=== PATIENT | female | born 1985 | race Caucasian/White ===

== ENCOUNTER 2018-10-03 07:35 | Inpatient (IN) | payer OTHER ==
[~2018-10-03] VITALS: Ht 172.7 cm; Wt 87.7 kg
[~2018-10-03 07:35] MED LIST: IBUP-1222 PO; OXYC-302 PO
[2018-10-03] MEDS ORDERED: LACTATED RINGERS 1,000 ML IV SCH (10:23)
[2018-10-03] MEDS ORDERED: SODIUM CITRATE/CITRIC ACID 15 ML UDC PO ONE (10:30)
[2018-10-03] MEDS ORDERED: METOCLOPRAMIDE 5 MG/ML, 2ML IV ONE (10:30)
[2018-10-03] MEDS ORDERED: LACTATED RINGERS 1,000 ML IVBOLUS ONE (10:30)
[2018-10-03 10:44] VITALS: BP 122/78
[2018-10-03] MEDS ORDERED: SODIUM CITRATE/CITRIC ACID 15 ML UDC ONE (10:57)
[2018-10-03] MEDS ORDERED: METOCLOPRAMIDE 5 MG/ML, 2ML ONE (10:57)
[2018-10-03] MEDS ORDERED: PLEASE ENTER HEIGHT AND WEIGHT MC SCH (11:00)
[2018-10-03 11:07] LABS: BASOPHILS # (AUTO) 0.02 x10^3/uL (0-0.1); BASOPHILS % (AUTO) 0 % (0-1); EOSINOPHILS # (AUTO) 0.05 x10^3/uL (0-0.4); EOSINOPHILS % (AUTO) 0 % (1-7); LYMPHOCYTES # (AUTO) 2.88 x10^3/uL (1-3.4); LYMPHOCYTES % (AUTO) 24 % (22-44); MD NO; MEAN CORPUSCULAR HEMOGLOBIN 29.2 pg (27.0-34.8); MEAN CORPUSCULAR HGB CONC 33.1 g/dL (32.4-35.8); MEAN CORPUSCULAR VOLUME 88.3 fL (80-100); MEAN PLATELET VOLUME 6.8 fL (7.4-10.4); MONOCYTES # (AUTO) 0.89 x10^3/uL (0.2-0.8); MONOCYTES % (AUTO) 7 % (2-9); NEUTROPHILS % (AUTO) 68 % (42-75); PLATELET COUNT 275 x10^3/uL (130-400); RED BLOOD COUNT 4.33 x10^6/uL (3.82-5.3); RED CELL DISTRIBUTION WIDTH 14.4 % (9.6-15.2)
[2018-10-03] MEDS ORDERED: NEWBORN KIT ONE (11:32)
[2018-10-03] MEDS ORDERED: ONDANSETRON 2MG/ML, 2ML ONE (11:41)
[2018-10-03] MEDS ORDERED: EPHEDRINE 50 MG/ML, 1ML ONE (11:41)
[2018-10-03] MEDS ORDERED: DEXAMETHASONE 4 MG/ML, 1ML ONE (11:41)
[2018-10-03] MEDS ORDERED: KETOROLAC 30 MG/1 ML ONE (11:41)
[2018-10-03] MEDS ORDERED: CEFAZOLIN 1,000 MG ONE (11:41)
[2018-10-03] MEDS ORDERED: OXYTOCIN 10 UNITS/ML, 1ML ONE (11:41)
[2018-10-03] MEDS ORDERED: PHENYLEPHRINE 10 MG/ML ONE (11:41)
[2018-10-03] MEDS ORDERED: FENTANYL PF 100 MCG/2ML ONE (11:42)
[2018-10-03] MEDS ORDERED: OXYcodone 5 MG/5 ML ORAL.SOL UDC PO PRN (12:00)
[2018-10-03] MEDS ORDERED: FENTANYL PF 100 MCG/2ML IV PRN (12:00)
[2018-10-03] MEDS ORDERED: ONDANSETRON 2MG/ML, 2ML IVPush PRN (12:00)
[2018-10-03] MEDS ORDERED: MIDAZOLAM 1 MG/ML, 2ML IV PRN (12:00)
[2018-10-03] MEDS ORDERED: HYDROcodone/APAP 7.5-325MG/15ML UDC PO PRN (12:00)
[2018-10-03] MEDS ORDERED: hydrALAzine 20 MG/ML, 1ML IV PRN (12:00)
[2018-10-03] MEDS ORDERED: EPHEDRINE 50 MG/ML, 1ML IVPush PRN (12:00)
[2018-10-03] MEDS ORDERED: PROMETHAZINE 25 MG/ML, 1ML IV PRN (12:00)
[2018-10-03] MEDS ORDERED: LABETALOL 5MG/ML, 20ML IV PRN (12:00)
[2018-10-03] MEDS ORDERED: HYDROmorphone 2 MG/ML, 1ML IVPush PRN (12:00)
[2018-10-03] MEDS ORDERED: MEPERIDINE/PF 25MG/0.5ML IVPush PRN (12:00)
[2018-10-03] MEDS ORDERED: ALBUTEROL/IPRATROPIUM 2.5MG/0.5MG, 3 ML NPPB PRN (12:00)
[2018-10-03] MEDS ORDERED: HYDROmorphone 2 MG/ML, 1ML ONE (12:41)
[2018-10-03] MEDS: KETOROLAC 30 MG/1 ML IV SCH ×2 (13:00→20:07)
[2018-10-03] MEDS: LACTATED RINGERS 1,000 ML IV SCH ×4 (13:17→23:17)
[2018-10-03] MEDS ORDERED: OXYTOCIN 30U/ 0.9% NaCL 500ML 500 ML ONE (13:19)
[2018-10-03] MEDS ORDERED: OXYcodone IR 5MG TABLET PO PRN (13:30)
[2018-10-03] MEDS ORDERED: MISOPROSTOL 200 MCG TABLET PR PRN (13:30)
[2018-10-03] MEDS ORDERED: ONDANSETRON 2MG/ML, 2ML IV PRN (13:30)
[2018-10-03] MEDS ORDERED: IBUPROFEN 600 MG TABLET PO PRN (13:30)
[2018-10-03] MEDS ORDERED: MORPHINE SULFATE 4 MG/ML, 1ML IVPush PRN (13:30)
[2018-10-03] MEDS ORDERED: morphine SULFATE 10 MG/ML, 1ML IM PRN (13:30)
[2018-10-03] MEDS: OXYTOCIN 30U/ 0.9% NaCL 500ML 500 ML IV SCH ×2 (13:44→23:17)
[2018-10-03] MEDS ORDERED: morphine SULFATE 10 MG/ML, 1ML ONE (15:00)
[2018-10-03 15:30] VITALS: BP 114/72
[2018-10-03] MEDS: OXYcodone IR 5MG TABLET PO PRN ×2 (16:07→20:06)
[2018-10-03 19:30] VITALS: BP 113/69
[2018-10-03] MEDS: SIMETHICONE 80 MG CHEW TAB PO PRN (20:07)
[2018-10-03] MEDS: DOCUSATE 100 MG CAPSULE PO PRN (20:07)
[2018-10-03 21:57] LABS: BASOPHILS # (AUTO) 0.04 x10^3/uL (0-0.1); BASOPHILS % (AUTO) 0 % (0-1); EOSINOPHILS % (AUTO) 0 % (1-7); LYMPHOCYTES # (AUTO) 1.99 x10^3/uL (1-3.4); LYMPHOCYTES % (AUTO) 12 % (22-44); MD NO; MEAN CORPUSCULAR HEMOGLOBIN 29.3 pg (27.0-34.8); MEAN CORPUSCULAR HGB CONC 33.1 g/dL (32.4-35.8); MEAN CORPUSCULAR VOLUME 88.5 fL (80-100); MEAN PLATELET VOLUME 6.6 fL (7.4-10.4); MONOCYTES # (AUTO) 0.67 x10^3/uL (0.2-0.8); MONOCYTES % (AUTO) 4 % (2-9); NEUTROPHILS # (AUTO) 13.68 x10^3/uL (1.8-6.8); NEUTROPHILS % (AUTO) 84 % (42-75); PLATELET COUNT 228 x10^3/uL (130-400); RED BLOOD COUNT 3.48 x10^6/uL (3.82-5.3); RED CELL DISTRIBUTION WIDTH 14.4 % (9.6-15.2)
[2018-10-04] MEDS: OXYcodone IR 5MG TABLET PO PRN ×6 (00:27→21:39)
[2018-10-04 00:30] VITALS: BP 106/70
[2018-10-04] MEDS: KETOROLAC 30 MG/1 ML IV SCH ×4 (02:22→20:38)
[2018-10-04] MEDS: SIMETHICONE 80 MG CHEW TAB PO PRN (02:22)
[2018-10-04 04:30] VITALS: BP 100/65
[2018-10-04] MEDS: LACTATED RINGERS 1,000 ML IV SCH ×5 (05:17→21:17)
[2018-10-04 08:09] VITALS: BP 117/79
[2018-10-04] MEDS: DOCUSATE 100 MG CAPSULE PO PRN ×2 (08:28→20:38)
[2018-10-04] MEDS: PRENATAL VIT/IRON/FA 1 EACH TABLET PO SCH (09:00)
[2018-10-04] MEDS: OXYTOCIN 30U/ 0.9% NaCL 500ML 500 ML IV SCH ×2 (09:17→19:17)
[2018-10-04] MEDS ORDERED: GUAIFENESIN 100 MG/5 ML, 5ML UDC PO PRN (10:00)
[2018-10-04 20:15] VITALS: BP 104/66
[2018-10-05] MEDS: OXYcodone IR 5MG TABLET PO PRN ×2 (02:16→08:05)
[2018-10-05] MEDS: KETOROLAC 30 MG/1 ML IV SCH ×2 (02:16→08:05)
[2018-10-05] MEDS: OXYTOCIN 30U/ 0.9% NaCL 500ML 500 ML IV SCH (05:17)
[2018-10-05] MEDS: LACTATED RINGERS 1,000 ML IV SCH ×2 (05:17)
[2018-10-05] MEDS: DOCUSATE 100 MG CAPSULE PO PRN (08:05)
[2018-10-05] MEDS: PRENATAL VIT/IRON/FA 1 EACH TABLET PO SCH (08:15)
[2018-10-05] MEDS ORDERED: OXYC5TAB2 PO (08:31)
== END 2018-10-05 10:05 | disposition home or self-care (01) | DRG 788 ==
LOC: LDIP 10:12 → 2NW 15:11
PROVIDERS: ADMIT Obstetrics & Gynecology; ATTEND Obstetrics & Gynecology
PROC: 10D00Z1 Extraction of Products of Conception, Low, Open Approach (ICD-10-PCS; principal; 2018-10-03)
DX: O34.211 Maternal care for low transverse scar from previous cesarean delivery (principal); O69.81X0 Labor and delivery complicated by cord around neck, without compression, not applicable or unspecified; O77.0 Labor and delivery complicated by meconium in amniotic fluid; Z3A.39 39 weeks gestation of pregnancy; Z37.0 Single live birth
CPT/HCPCS: 36415; 85025; 86850; 86900; G0378; J0690; J1100; J1170; J1885; J2405; J3010; J2370; J2590; J2765; J7120